=== PATIENT | female | born 1955 | race Caucasian/White ===

== ENCOUNTER 2022-01-06 08:13 | Inpatient (IN) | payer MEDICARE, OTHER ==
[~2022-01-06] VITALS: Ht 175.3 cm; Wt 118.1 kg
[2022-01-06 08:53] LABS: BASO % 1 % (0-3); EOS # 0.1 x10^3/uL (0.0-0.7); EOS % 3 % (0-3); HEMATOCRIT 32.7 % (36.0-47.0); LYMPH # 0.5 x10^3/uL (1.0-4.8); LYMPH % 12 % (24-48); MEAN CORPUSCULAR HEMOGLOBIN 32 pg (25-35); MEAN CORPUSCULAR HGB CONC 31 g/dL (31-37); MEAN CORPUSCULAR VOLUME 104 fL (79-100); MONO # 0.3 x10^3/uL (0.0-1.1); MONO % 6 % (0-9); NEUT # 3.5 x10^3/uL (1.8-7.7); NEUT % 78 % (31-73); PLATELET COUNT 114 x10^3/uL (140-400); RED BLOOD COUNT 3.13 x10^6/uL (3.50-5.40); RED CELL DISTRIBUTION WIDTH 18.4 % (11.5-14.5); WHITE BLOOD COUNT 4.4 x10^3/uL (4.0-11.0)
[2022-01-06 09:09] LABS: CREATININE 5.8 mg/dL (0.6-1.0); GFR 7.3; POTASSIUM 3.8 mmol/L (3.5-5.1)
[2022-01-06 09:16] LABS: ALBUMIN 3.1 g/dL (3.4-5.0); ALBUMIN/GLOBULIN RATIO 0.7 (1.0-1.7); TOTAL BILIRUBIN 0.4 mg/dL (0.2-1.0); TOTAL PROTEIN 7.8 g/dL (6.4-8.2)
--- NOTE | 2022-01-06 09:23 | RAD ---
EXAM: XR CHEST 1V 01/06/2022 8:31 AM CLINICAL INDICATION: Low blood pressure COMPARISON: Chest radiograph 08/06/2021 TECHNIQUE: AP upright view of the chest FINDINGS: There are surgical changes of median sternotomy. The heart is mildly enlarged. Unchanged b andlike opacities in the right perihilar region, which may be fluid along the fissure and or scarring or atelectasis.. Possible increased opacities in the medial right middle lobe versus prominent peric ardial fat pad. No pleural effusion or pneumothorax. IMPRESSION: 1. Unchanged cardiomegaly. 2. Unchanged linear opacities in the right perihilar region which may be combination of fluid along t he minor fissure and scarring or atelectasis. 3. Possibly increased opacities in the medial right middle lobe, which could be due to atelectasis or prominent pericardial fat pad. Electronically signed by: Khushbu Quiroga MD (01/06/2022 9:21 AM) [id number]
[2022-01-06] MEDS ORDERED: IOHEXOL 300 MG/ML 100ML VIAL. IV ONE (12:00)
[2022-01-06] MEDS ORDERED: CONTRAST GIVEN. MC PRN (12:00)
--- NOTE | 2022-01-06 13:06 | RAD ---
CT CHEST+ABD+PELVIS W History: Hypotension Comparison: CT abdomen and pelvis 12/01/2020 Technique: CT of the chest, abdomen and pelvis with intravenous contrast. Findings: Chest: Pulmonary arteries: No large or central pulmonary embolism. Aorta and great vessels: No aneurysm of the aortic arch or thoracic aorta is seen. Moderate atheroscl erotic calcification. Heart: Cardiomegaly. Heavy coronary artery calcification. No pericardial effusion. Postsurgical butt es from CABG. Thyroid: No significant abnormalities. Mediastinum and godfrey: No mediastinal masses or adenopathy is seen. Esophagus: The visualized esophagus is normal. Airways, Lungs, Pleura: Low lung volumes with multifocal atelectatic consolidation and groundglass op acities diffusely. No pleural effusion or pneumothorax. Soft tissue and osseous: Left axillary stent. Healed posterior right rib fractures. Abdomen/Pelvis: General abdomen: No ascites. No free air. Liver : Normal in size and attenuation. Unchanged peripherally calcified 3.0 cm mass adjacent to the right hepatic dome under the diaphragm. Gallbladder/Biliary Tree: Status post cholecystectomy. No intrahepatic or extrahepatic biliary ductal dilatation. Pancreas: Normal. Spleen: Normal in size and attenuation. 2.1 cm splenule inferior splenule near the right paracolic gu tter. Adrenal glands: Normal. Kidneys: Bilateral renal cortical atrophy with heavy calcification at the origin of the renal arterie s. No hydronephrosis or hydroureter. No renal masses identified. Gastrointestinal: Unremarkable stomach and small bowel. Surgical changes in the region of the cecal b ase likely appendectomy. No colonic wall thickening or pericolonic inflammatory changes. Lymph nodes: No lymphadenopathy. Vessels: Unremarkable. Pelvic Organs: Calcified uterus. No adnexal masses. The decompressed bladder is unremarkable. Soft tissues: Unremarkable. Bones: No acute or aggressive lesions. Mild degenerative disc height narrowing of the lower lumbar sp ine. Impression: 1. Hypoinflated lungs with multiple areas of platelike consolidation likely atelectasis and groundgl ass opacities. Superimposed infection or edema cannot be excluded. 2. Cardiomegaly status post CABG. 3. No acute findings in the abdomen and pelvis. 4. Chronic 3 cm calcification right hepatic may represent dystrophic calcification liver also previo usly suggested possible dropped gallstone. ------ Exposure: One or more of the following individualized dose reduction techniques were utilized for thi s examination: 1. Automated exposure control 2. Adjustment of the mA and/or kV according to patient size 3. Use of iterative reconstruction technique. Electronically signed by: Murtaza Khan MD (01/06/2022 1:03 PM) [facility]
--- NOTE | 2022-01-06 14:41 | RAD ---
CT HEAD/BRAIN WO History: Altered mental status. Comparison: CT head 08/06/2021. Technique: Noncontrast CT imaging was performed of the head. Findings: No intracranial hemorrhage. No mass effect. No hydrocephalus. No evidence of acute territorial infar ction. There is redemonstrated left parieto-occipital encephalomalacia. Imaged orbits are unremarkable. Imaged paranasal sinuses and mastoid air cells are clear. The scalp a nd calvarium are unremarkable. Impression: 1. No acute intracranial abnormality. 2. 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 ----- Exposure: One or more of the following individualized dose reduction techniques were utilized for thi s examination: 1. Automated exposure control 2. Adjustment of the mA and/or kV according to patient size 3. Use of iterative reconstruction technique. Electronically signed by: Murtaza Khan MD (01/06/2022 2:39 PM) [facility]
--- NOTE | 2022-01-06 15:15 | PHYS DOC ---
Past Medical History Additional Past Medical Histor: NATHAN, MORBID OBESITY, PVD, HYPERCALCEMIA, END STAGE RENAL FAILURE Past Surgical History: Coronary Bypass Surgery, Other Additional Past Surgical Histo: LEFT LOWER LEG AMPUTATION Smoking Status: Never Smoker Alcohol Use: None General Adult EDM: Chief Complaint: HYPOTENSION HPI: HPI: Patient is a 66 year old female who presents with low blood pressure at dialysis center. Patient was asymptomatic throughout this episode. Dialysis center when she arrived, blood pressure was noted to be 90s over 50s. Patient was transported by EMS to our emergency department. In the ambulance, blood pressure was higher than in dialysis center. Upon arrival, blood pressure was 110/80. Patient is not complaining about any symptoms, patient states that she feels fine. Patient is at longterm. Contacted longterm who states that patient is at baseline, was at baseline this morning, verified the patient is currently at baseline as well. Verified with nurse who knows patient that she was mentally at baseline. Review of Systems: Review of Systems: Constitutional: Denies fever or chills. [] Eyes: Denies change in visual acuity. [] HENT: Denies nasal congestion or sore throat. [] Respiratory: Denies cough or shortness of breath. [] Cardiovascular: Denies chest pain or edema. [] GI: Denies abdominal pain, nausea, vomiting, bloody stools or diarrhea. [] : Denies dysuria. [] Musculoskeletal: Denies back pain or joint pain. [] Integument: Denies rash. [] Neurologic: Denies headache, focal weakness or sensory changes. [] Endocrine: Denies polyuria or polydipsia. [] Lymphatic: Denies swollen glands. [] Psychiatric: Denies depression or anxiety. [] Heart Score: C/O Chest Pain: No Risk Factors: Risk Factors: DM, Current or recent (<one month) smoker, HTN, HLP, family history of CAD, obesity. Risk Scores: Score 0 - 3: 2.5% MACE over next 6 weeks - Discharge Home Score 4 - 6: 20.3% MACE over next 6 weeks - Admit for Clinical Observation Score 7 - 10: 72.7% MACE over next 6 weeks - Early Invasive Strategies Current Medications: Current Medications Medications (Trade) Dose Ordered Sig/Marcia Start Time Stop Time Status Last Admin Dose Admin Info (CONTRAST GIVEN -- Rx MONITORING) 1 each PRN DAILY PRN 01/06/22 12:00 01/08/22 11:59 Iohexol (Omnipaque 300 Mg/ml) 60 ml 1X ONCE 01/06/22 12:00 01/06/22 12:01 DC 01/06/22 12:14 60 ML Allergies: Allergies: Allergies Coded Allergies Type Severity Reaction Last Updated Verified acetaminophen Allergy Intermediate 01/06/22 Yes codeine Allergy Intermediate 01/06/22 Yes fentanyl Allergy Intermediate 01/06/22 Yes hydrocodone Allergy Intermediate 01/06/22 Yes morphine Allergy Intermediate 01/06/22 Yes oxycodone Allergy Intermediate 01/06/22 Yes Physical Exam: PE: Constitutional: Well developed, well nourished, no acute distress, non-toxic appearance. [] HENT: Normocephalic, atraumatic, bilateral external ears normal, oropharynx moist, no oral exudates, nose normal. [] Neck: Normal range of motion, no tenderness, supple, no stridor. [] Cardiovascular:Heart rate regular rhythm, no murmur [] Lungs & Thorax: Bilateral breath sounds clear to auscultation [] Abdomen: Bowel sounds normal, soft, no tenderness, no masses, no pulsatile masses. [] Skin: Warm, dry, no erythema, no rash. [] Back: No tenderness, no CVA tenderness. [] Extremities: No tenderness, no cyanosis, no clubbing, ROM intact, no edema. [] Neurologic: Alert and oriented X 3, normal motor function, normal sensory function, no focal deficits noted. [] Psychologic: Affect normal, judgement normal, mood normal. [] Current Patient Data: Labs: Laboratory Tests Test 01/06/22 08:40 01/06/22 08:43 White Blood Count 4.4 x10^3/uL (4.0-11.0) Red Blood Count 3.13 x10^6/uL (3.50-5.40) L Hemoglobin 10.0 g/dL (12.0-15.5) L Hematocrit 32.7 % (36.0-47.0) L Mean Corpuscular Volume 104 fL (79-100) H Mean Corpuscular Hemoglobin 32 pg (25-35) Mean Corpuscular Hemoglobin Concent 31 g/dL (31-37) Red Cell Distribution Width 18.4 % (11.5-14.5) H Platelet Count 114 x10^3/uL (140-400) L Neutrophils (%) (Auto) 78 % (31-73) H Lymphocytes (%) (Auto) 12 % (24-48) L Monocytes (%) (Auto) 6 % (0-9) Eosinophils (%) (Auto) 3 % (0-3) Basophils (%) (Auto) 1 % (0-3) Neutrophils # (Auto) 3.5 x10^3/uL (1.8-7.7) Lymphocytes # (Auto) 0.5 x10^3/uL (1.0-4.8) L Monocytes # (Auto) 0.3 x10^3/uL (0.0-1.1) Eosinophils # (Auto) 0.1 x10^3/uL (0.0-0.7) Basophils # (Auto) 0.0 x10^3/uL (0.0-0.2) Sodium Level 132 mmol/L (136-145) L Potassium Level 3.8 mmol/L (3.5-5.1) Chloride Level 94 mmol/L (98-107) L Carbon Dioxide Level 29 mmol/L (21-32) Anion Gap 9 (6-14) Blood Urea Nitrogen 47 mg/dL (7-20) H Creatinine 5.8 mg/dL (0.6-1.0) H Estimated GFR (Cockcroft-Gault) 7.3 BUN/Creatinine Ratio 8 (6-20) Glucose Level 236 mg/dL (70-99) H Lactic Acid Level 1.1 mmol/L (0.4-2.0) Calcium Level 9.0 mg/dL (8.5-10.1) Total Bilirubin 0.4 mg/dL (0.2-1.0) Aspartate Amino Transferase (AST) 13 U/L (15-37) L Alanine Aminotransferase (ALT) 22 U/L (14-59) Alkaline Phosphatase 214 U/L (46-116) H Ammonia 14 mcmol/L (11-34) Troponin I High Sensitivity 13 ng/L (4-50) Total Protein 7.8 g/dL (6.4-8.2) Albumin 3.1 g/dL (3.4-5.0) L Albumin/Globulin Ratio 0.7 (1.0-1.7) L Glucose (Fingerstick) 243 mg/dL (70-99) H Laboratory Tests 01/06/22 08:40 Laboratory Tests 01/06/22 08:40 Vital Signs: Vital Signs Date Time Temp Pulse Resp B/P (MAP) Pulse Ox O2 Delivery O2 Flow Rate FiO2 01/06/22 13:51 52 130/56 (80) 98 Room Air 01/06/22 12:38 92.4 92.4 01/06/22 11:34 18 EKG: EKG: Abnormal EKG, right bundle branch block bifascicular block [] Radiology/Procedures: Radiology/Procedures: PATIENT: EDNA MEHTA ACCOUNT: [id number] : 1955 LOCATION: ER AGE: 66 SEX: F EXAM STATUS: REG ER ORD. PHYSICIAN: OMKAR RIZVI MD REASON: AMS PROCEDURE: CT HEAD WO CONTRAST CT HEAD/BRAIN WO History: Altered mental status. Comparison: CT head 08/06/2021. Technique: Noncontrast CT imaging was performed of the head. Findings: No intracranial hemorrhage. No mass effect. No hydrocephalus. No evidence of acute territorial infarction. There is redemonstrated left parieto-occipital encephalomalacia. Imaged orbits are unremarkable. Imaged paranasal sinuses and mastoid air cells are clear. The scalp and calvarium are unremarkable. Impression: 1. No acute intracranial abnormality. 2. 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 ----- Exposure: One or more of the following individualized dose reduction techniques were utilized for this examination: 1. Automated exposure control 2. Adjustment of the mA and/or kV according to patient size 3. Use of iterative reconstruction technique. Electronically signed by: Murtaza Diaz MD (01/06/2022 2:39 PM) [facility] DICTATED and SIGNED BY: MURTAZA DIAZ MD DATE: 01/06/22 7087 PATIENT: EDNA MEHTA ACCOUNT: [id number] : 1955 LOCATION: ER AGE: 66 SEX: F EXAM STATUS: REG ER ORD. PHYSICIAN: OMKAR RIZVI MD REASON: hypotension PROCEDURE: CT CHEST ABD PELVIS W/CONTRAST CT CHEST+ABD+PELVIS W History: Hypotension Comparison: CT abdomen and pelvis 12/01/2020 Technique: CT of the chest, abdomen and pelvis with intravenous contrast. Findings: Chest: Pulmonary arteries: No large or central pulmonary embolism. Aorta and great vessels: No aneurysm of the aortic arch or thoracic aorta is seen. Moderate atherosclerotic calcification. Heart: Cardiomegaly. Heavy coronary artery calcification. No pericardial effusion. Postsurgical changes from CABG. Thyroid: No significant abnormalities. Mediastinum and godfrey: No mediastinal masses or adenopathy is seen. Esophagus: The visualized esophagus is normal. Airways, Lungs, Pleura: Low lung volumes with multifocal atelectatic consolidation and groundglass opacities diffusely. No pleural effusion or pneumothorax. Soft tissue and osseous: Left axillary stent. Healed posterior right rib fractures. Abdomen/Pelvis: General abdomen: No ascites. No free air. Liver : Normal in size and attenuation. Unchanged peripherally calcified 3.0 cm mass adjacent to the right hepatic dome under the diaphragm. Gallbladder/Biliary Tree: Status post cholecystectomy. No intrahepatic or extrahepatic biliary ductal dilatation. Pancreas: Normal. Spleen: Normal in size and attenuation. 2.1 cm splenule inferior splenule near the right paracolic gutter. Adrenal glands: Normal. Kidneys: Bilateral renal cortical atrophy with heavy calcification at the origin of the renal arteries. No hydronephrosis or hydroureter. No renal masses identified. Gastrointestinal: Unremarkable stomach and small bowel. Surgical changes in the region of the cecal base likely appendectomy. No colonic wall thickening or pericolonic inflammatory changes. Lymph nodes: No lymphadenopathy. Vessels: Unremarkable. Pelvic Organs: Calcified uterus. No adnexal masses. The decompressed bladder is unremarkable. Soft tissues: Unremarkable. Bones: No acute or aggressive lesions. Mild degenerative disc height narrowing of the lower lumbar spine. Impression: 1. Hypoinflated lungs with multiple areas of platelike consolidation likely atelectasis and groundglass opacities. Superimposed infection or edema cannot be excluded. 2. Cardiomegaly status post CABG. 3. No acute findings in the abdomen and pelvis. 4. Chronic 3 cm calcification right hepatic may represent dystrophic calcifica tion liver also previously suggested possible dropped gallstone. ------ Exposure: One or more of the following individualized dose reduction techniques were utilized for this examination: 1. Automated exposure control 2. Adjustment of the mA and/or kV according to patient size 3. Use of iterative reconstruction technique. Electronically signed by: Murtaza Diaz MD (01/06/2022 1:03 PM) [facility] DICTATED and SIGNED BY: MURTAZA DIAZ MD DATE: 01/06/22 1248 Impression: 66-year-old female with hypothermia, hypotension earlier today Course & Med Decision Making: Course & Med Decision Making Pertinent Labs and Imaging studies reviewed. (See chart for details) Patient was seen and evaluated, patient mentally at baseline. Her partner stated that he thought she was altered for the last month, longterm staff denies this. Patient is at baseline according to longterm staff. Does not seem like partner is completely aware of patient's mental capacity. Head CT, labs, chest abdomen pelvis CT was also obtained. Patient was noted to be hypothermic. No inflammatory markers. Patient is a dialysis patient, labs are normal for her condition. Since patient was hypothermic with reportedly low blood pressure earlier today, patient was admitted to hospitalist service, under Dr Sidhu, for further monitoring/intervention. Patient will also need dialysis. Maulik Disclaimer: Maulik Disclaimer: This electronic medical record was generated, in whole or in part, using a voice recognition dictation system. Departure Departure Impression: Primary Impression: Dehydration Additional Impression: Dialysis patient Disposition: 03 ALF FACILITY Condition: GOOD Patient Instructions: Dialysis, Care After Additional Instructions: Follow up with your Dialysis center, you should receive dialysis tomorrow. OMKAR RIZVI MD Jan 06, 2022 15:15
--- NOTE | 2022-01-06 15:44 | EKG ---
[facility] [address] [place] [address] Test Date: 2022-01-06 Test Time: 08:24:47 Pat Name: EDNA MEHTA Department: Room: 422 Gender: F Child Care Team Lead: : 1955 Requested By: OMKAR Bolton Number: [id number] Reading MD: Jose Phillip Measurements Intervals [place] Rate: 52 P: NE: QRS: -45 QRSD: 144 T: 150 QT: 496 QTc: 464 Interpretive Statements PROBABLE SINUS BRADYCARDIA ABNORMAL LEFT AXIS DEVIATION LEFT ANTERIOR FASCICULAR BLOCK Electronically Signed On 01-08-2022 18:20:50 CDT by Jose Phillip
--- NOTE | 2022-01-06 17:30 | NUR ---
Patient arrived to unit via bed from ER. Patient reported to have had episode of low blood pressure at dialysis today and was transported by [facility] to ED. Patient states the blood pressure readings obtained at visit are typical for her and retirement staff from [facility] stated patient was at baseline mentally which is slightly drowsy but rousable most of the time. Blood pressure obtained by nurse upon arrival to this unit was 105/45 pulse of [address] Sidhu for further orders.
[2022-01-06 17:54] VITALS: BP 105/45
[2022-01-06] MEDS ORDERED: ONDANSETRON PF 4 MG/2 ML VIAL. IVP PRN (18:15)
[2022-01-06] MEDS ORDERED: DEXTROSE 50% 25 GM / 50ML DISP.SYRIN. IV PRN (18:15)
[2022-01-06] MEDS ORDERED: IV DEXTROSE 5% 250 ML BAG. IV PRN (18:15)
[2022-01-06] MEDS ORDERED: ELECTROLYTE (NON-ICU) PROTOCOL. MC PRN (18:15)
[2022-01-06] MEDS ORDERED: ACETAMINOPHEN 325 MG TABLET. PO PRN (18:15)
[2022-01-06] MEDS ORDERED: CALCIUM CARBONATE 500 MG TAB.CHEW PO PRN (18:15)
[2022-01-06] MEDS ORDERED: HYDROmorphone 2 MG/ML INJ. IV PRN ×2 (18:15)
[2022-01-06 19:00] VITALS: BP 97/43
[2022-01-06] MEDS: SENNOSIDES/DOCUSATE 8.6/50MG TABLET. PO SCH (20:21)
[2022-01-06] MEDS: DOXYCYCLINE HYCLATE 100 MG TABLET PO SCH (20:21)
--- NOTE | 2022-01-06 20:22 | PDOC1 ---
History and Physical Date of Service: DOS: DATE: 01/06/22 TIME: 20:12 Chief Complaint: Chief Complain: missed dialysis, hypotension History of Present Illness: HPI: Patient is a 66-year-old female presented to the emergency room today from her dialysis center due to hypotension. Patient is ESRD on Thursday dialysis sound upon arrival to her center their blood pressure was 70s over 50s. She was given a 500 cc bolus and this improved to 90s over 50s. She was then taken to the emergency room here. Of note patient alert oriented x3 and asymptomatic throughout this entire episode. On arrival here patient's blood pressure improved to 110 systolic. She was noted to be hypothermic around 93 Fahrenheit. Otherwise work-up pretty unremarkable. Recommended for admission for observation dialysis and monitoring core temperature Past Medical/Surgical History: PMH/PSH: Additional Past Medical Histor: NATHAN, MORBID OBESITY, PVD, HYPERCALCEMIA, END STAGE RENAL FAILURE Past Surgical History: Coronary Bypass Surgery Additional Past Surgical Histo: LEFT LOWER LEG AMPUTATION Smoking Status: Never Smoker Alcohol Use: None Denies drug use Allergies: Allergies: Coded Allergies: acetaminophen (Verified Allergy, Intermediate, 01/06/22) PT DOES HAVE TYLENOL ACTIVE PRNAT SNF codeine (Verified Allergy, Intermediate, 01/06/22) fentanyl (Verified Allergy, Intermediate, 01/06/22) hydrocodone (Verified Allergy, Intermediate, 01/06/22) morphine (Verified Allergy, Intermediate, 01/06/22) oxycodone (Verified Allergy, Intermediate, 01/06/22) Family History: Family History: Hypertension Current Medications: Current Medications Current Medications Iohexol (Omnipaque 300 Mg/ml) 60 ml 1X ONCE IV Last administered on 01/06/22at 12:14; Start 01/06/22 at 12:00; Stop 01/06/22 at 12:01; Status DC Info (CONTRAST GIVEN -- Rx MONITORING) 1 each PRN DAILY PRN MC SEE COMMENTS; Start 01/06/22 at 12:00; Stop 01/08/22 at 11:59 Ondansetron HCl (Zofran) 4 mg PRN Q6HRS PRN IVP NAUSEA/VOMITING; Start 01/06/22 at 18:15 Calcium Carbonate/ Glycine (Tums) 500 mg PRN Q3HRS PRN PO UPSET STOMACH; Start 01/06/22 at 18:15 Info (Non-Icu Electrolyte Protocol) 1 ea PRN DAILY PRN MC SEE COMMENTS; Start 01/06/22 at 18:15 Hydromorphone HCl (Dilaudid) 0.2 mg PRN Q1HR PRN IV PAIN-SEE COMMENTS; Start 01/06/22 at 18:15 Hydromorphone HCl (Dilaudid) 0.4 mg PRN Q1HR PRN IV PAIN-SEE COMMENTS; Start 01/06/22 at 18:15 Acetaminophen (Tylenol) 650 mg PRN Q6HRS PRN PO Headaches, Temp > 101.5F; Start 01/06/22 at 18:15 Senna/Docusate Sodium (Senna Plus) 1 tab BID PO ; Start 01/06/22 at 21:00 Heparin Sodium (Porcine) (Heparin Sodium) 5,000 unit Q8HRS SQ ; Start 01/06/22 at 19:00 Insulin Human Lispro (HumaLOG) 0-7 UNITS TIDWMEALS SQ ; Start 01/07/22 at 08:00 Dextrose (Dextrose 50%-Water Syringe) 12.5 gm PRN Q15MIN PRN IV SEE COMMENTS; Start 01/06/22 at 18:15 Dextrose (Iv Dextrose 5%) 250 ml PRN Q15MIN PRN IV SEE COMMENTS; Start 01/06/22 at 18:15 Ceftriaxone Sodium (Rocephin) 1 gm Q24H IVP ; Start 01/06/22 at 19:00 Doxycycline Hyclate (Vibra-Tab) 100 mg BID PO ; Start 01/06/22 at 19:00 Vitamin B Complex/ Vitamin C (Nataly-Harris) 1 tab DAILY PO ; Start 01/07/22 at 09:00; Status UNV ROS: Review of Systems Review of System Unless noted in HPI 14 point review of systems was negative Physical Exam: Vital Signs: Vital Signs Date Time Temp Pulse Resp B/P (MAP) Pulse Ox O2 Delivery O2 Flow Rate FiO2 01/06/22 19:00 97.6 88 22 97/43 (61) 93 Room Air 97.6 Physcial Exam: GEN: Lethargic obese HEENT: Normal cephalic, atraumatic, external auditory canals are patent EYES: Extraocular muscles are intact, pupil are equally round and reactive to light and accommodation MUSCULOSKELETAL: Well developed , well nourished, good range of motion ENDOCRINE: No thyromegaly was palpated LYMPHATICS: No cervical chain or axillary nodes were noted HEMATOPOIETIC: No bruising NECK: Supple, no JVD, no thyromegaly was noted LUNGS: Decreased air entry throughout HEART: RRR, S1, S2 present. Peripheral pulses intact, no obvious murmurs noted ABDOMEN: Soft, nontender. Positive bowel sounds, no organomegaly, normal kierra l sounds EXTREMITIES: Left amputation. Right-sided pitting edema NEUROLOGIC: Normal speech and tone. A&O x 3, moves all extremities, no obvious focal deficits PSYCHIATRIC: Normal affect, normal mood. Stable SKIN: No ulcerations or rashes, good skin turgor, no jaundice VASCULAR: Good capillary refill, neurovascular bundle appears to be intact Labs: Labs: Laboratory Tests Test 01/06/22 08:40 01/06/22 08:43 01/06/22 17:32 White Blood Count 4.4 x10^3/uL (4.0-11.0) Red Blood Count 3.13 x10^6/uL (3.50-5.40) Hemoglobin 10.0 g/dL (12.0-15.5) Hematocrit 32.7 % (36.0-47.0) Mean Corpuscular Volume 104 fL (79-100) Mean Corpuscular Hemoglobin 32 pg (25-35) Mean Corpuscular Hemoglobin Concent 31 g/dL (31-37) Red Cell Distribution Width 18.4 % (11.5-14.5) Platelet Count 114 x10^3/uL (140-400) Neutrophils (%) (Auto) 78 % (31-73) Lymphocytes (%) (Auto) 12 % (24-48) Monocytes (%) (Auto) 6 % (0-9) Eosinophils (%) (Auto) 3 % (0-3) Basophils (%) (Auto) 1 % (0-3) Neutrophils # (Auto) 3.5 x10^3/uL (1.8-7.7) Lymphocytes # (Auto) 0.5 x10^3/uL (1.0-4.8) Monocytes # (Auto) 0.3 x10^3/uL (0.0-1.1) Eosinophils # (Auto) 0.1 x10^3/uL (0.0-0.7) Basophils # (Auto) 0.0 x10^3/uL (0.0-0.2) Sodium Level 132 mmol/L (136-145) Potassium Level 3.8 mmol/L (3.5-5.1) Chloride Level 94 mmol/L (98-107) Carbon Dioxide Level 29 mmol/L (21-32) Anion Gap 9 (6-14) Blood Urea Nitrogen 47 mg/dL (7-20) Creatinine 5.8 mg/dL (0.6-1.0) Estimated GFR (Cockcroft-Gault) 7.3 BUN/Creatinine Ratio 8 (6-20) Glucose Level 236 mg/dL (70-99) Lactic Acid Level 1.1 mmol/L (0.4-2.0) Calcium Level 9.0 mg/dL (8.5-10.1) Total Bilirubin 0.4 mg/dL (0.2-1.0) Aspartate Amino Transf (AST/SGOT) 13 U/L (15-37) Alanine Aminotransferase (ALT/SGPT) 22 U/L (14-59) Alkaline Phosphatase 214 U/L (46-116) Ammonia 14 mcmol/L (11-34) Troponin I High Sensitivity 13 ng/L (4-50) Total Protein 7.8 g/dL (6.4-8.2) Albumin 3.1 g/dL (3.4-5.0) Albumin/Globulin Ratio 0.7 (1.0-1.7) Vitamin B12 Level 1425 pg/mL (247-911) Thyroid Stimulating Hormone (TSH) 2.319 uIU/mL (0.358-3.74) Glucose (Fingerstick) 243 mg/dL (70-99) 199 mg/dL (70-99) Laboratory Tests Test 01/06/22 08:40 01/06/22 08:43 01/06/22 17:32 White Blood Count 4.4 x10^3/uL (4.0-11.0) Red Blood Count 3.13 x10^6/uL (3.50-5.40) Hemoglobin 10.0 g/dL (12.0-15.5) Hematocrit 32.7 % (36.0-47.0) Mean Corpuscular Volume 104 fL (79-100) Mean Corpuscular Hemoglobin 32 pg (25-35) Mean Corpuscular Hemoglobin Concent 31 g/dL (31-37) Red Cell Distribution Width 18.4 % (11.5-14.5) Platelet Count 114 x10^3/uL (140-400) Neutrophils (%) (Auto) 78 % (31-73) Lymphocytes (%) (Auto) 12 % (24-48) Monocytes (%) (Auto) 6 % (0-9) Eosinophils (%) (Auto) 3 % (0-3) Basophils (%) (Auto) 1 % (0-3) Neutrophils # (Auto) 3.5 x10^3/uL (1.8-7.7) Lymphocytes # (Auto) 0.5 x10^3/uL (1.0-4.8) Monocytes # (Auto) 0.3 x10^3/uL (0.0-1.1) Eosinophils # (Auto) 0.1 x10^3/uL (0.0-0.7) Basophils # (Auto) 0.0 x10^3/uL (0.0-0.2) Sodium Level 132 mmol/L (136-145) Potassium Level 3.8 mmol/L (3.5-5.1) Chloride Level 94 mmol/L (98-107) Carbon Dioxide Level 29 mmol/L (21-32) Anion Gap 9 (6-14) Blood Urea Nitrogen 47 mg/dL (7-20) Creatinine 5.8 mg/dL (0.6-1.0) Estimated GFR (Cockcroft-Gault) 7.3 BUN/Creatinine Ratio 8 (6-20) Glucose Level 236 mg/dL (70-99) Lactic Acid Level 1.1 mmol/L (0.4-2.0) Calcium Level 9.0 mg/dL (8.5-10.1) Total Bilirubin 0.4 mg/dL (0.2-1.0) Aspartate Amino Transf (AST/SGOT) 13 U/L (15-37) Alanine Aminotransferase (ALT/SGPT) 22 U/L (14-59) Alkaline Phosphatase 214 U/L (46-116) Ammonia 14 mcmol/L (11-34) Troponin I High Sensitivity 13 ng/L (4-50) Total Protein 7.8 g/dL (6.4-8.2) Albumin 3.1 g/dL (3.4-5.0) Albumin/Globulin Ratio 0.7 (1.0-1.7) Vitamin B12 Level 1425 pg/mL (247-911) Thyroid Stimulating Hormone (TSH) 2.319 uIU/mL (0.358-3.74) Glucose (Fingerstick) 243 mg/dL (70-99) 199 mg/dL (70-99) Assessment/Plan Assessment/Plan Hypotension, altered mental status, hypothermia ,ESRD on Thursday dialysis, macrocytic anemia morbid obesity history NATHAN -Nephrology consult to resume dialysis. Blood pressures improved -Tammi hugger for hypothermia -Questionable opacity on imaging. Will at least start basic antibiotics Rocephin doxy. Check UA if infected this combo should also cover -Home meds as indicated -We will start Nataly-Harris given macrocytic anemia -Check A1c TSH given altered mental status -Discussed with bedside RN Justifications for Admission Other Justification RADHA JACKSON MD Jan 06, 2022 20:22
[2022-01-06] MEDS: cefTRIAXone IV Push 1 GM VIAL. IVP SCH (20:23)
[2022-01-06] MEDS: HEPARIN for SUB-Q USE 5,000 UNIT/ML VIAL. SQ SCH (20:31)
--- NOTE | 2022-01-06 21:53 | NUR ---
Call to Dr. Sidhu regarding clarification of admit orders. Informed him of current vitals, FSBS. Orders received to hold Tammi hugger for now and call if condition changes. Keep on medical surgical floor, try and get Bipap settings and have respiratory place on Bipap if needed.
[2022-01-06 23:00] VITALS: BP 127/45
--- NOTE | 2022-01-06 23:17 | NUR ---
Call placed to Patient's facility to verify Bi pap settings. Nurse stated that Patient does not use Bi pap but uses oxygen PRN. Call placed to Dr. Sidhu's service to inform him of no Bi pap.
--- NOTE | 2022-01-06 23:44 | NUR ---
Dr. Sidhu returned call and aware of no Bi pap at HS per facility and Oxygen PRN. Order received to use oxygen PRN at HS.
[2022-01-07 02:51] VITALS: BP 136/55
[2022-01-07] MEDS: HEPARIN for SUB-Q USE 5,000 UNIT/ML VIAL. SQ SCH ×3 (05:50→21:18)
[2022-01-07 07:00] VITALS: BP 130/57
--- NOTE | 2022-01-07 09:32 | PDOC2 ---
CONSULT Date of Consult Date of Consult DATE: 01/07/22 TIME: : Reason for Consult Reason for Consult: ESRD Source Source: Chart review, Patient History of Present Illness Reason for Visit: Patient is a 66-year-old CF presented to the emergency room on 01/06 from her dialysis center due to hypotension. At the dialysis center her blood pressure was 70s over 50s. She was given a 500 cc bolus and this improved to 90s over 50s. She was sent to the ER . On arrival patient's blood pressure improved to 110 systolic. She was noted to be hypothermic around 93 Fahrenheit. No N/V . No F/C . Denies any CP or abd ominal pain . C/O mild SOB . Uses O2 at home prn She did not get dialysis yesterday, last was on Thursday Current Problem List Problem List Problems Medical Problems: (1) Dehydration Status: Acute (2) Dialysis patient Status: Acute (3) Hypothermia Status: Acute Current Medications Current Medications Current Medications Iohexol (Omnipaque 300 Mg/ml) 60 ml 1X ONCE IV Last administered on 01/06/22at 12:14; Start 01/06/22 at 12:00; Stop 01/06/22 at 12:01; Status DC Info (CONTRAST GIVEN -- Rx MONITORING) 1 each PRN DAILY PRN MC SEE COMMENTS; Start 01/06/22 at 12:00; Stop 01/08/22 at 11:59 Ondansetron HCl (Zofran) 4 mg PRN Q6HRS PRN IVP NAUSEA/VOMITING; Start 01/06/22 at 18:15 Calcium Carbonate/ Glycine (Tums) 500 mg PRN Q3HRS PRN PO UPSET STOMACH; Start 01/06/22 at 18:15 Info (Non-Icu Electrolyte Protocol) 1 ea PRN DAILY PRN MC SEE COMMENTS; Start 01/06/22 at 18:15 Hydromorphone HCl (Dilaudid) 0.2 mg PRN Q1HR PRN IV PAIN-SEE COMMENTS; Start 01/06/22 at 18:15 Hydromorphone HCl (Dilaudid) 0.4 mg PRN Q1HR PRN IV PAIN-SEE COMMENTS; Start 01/06/22 at 18:15 Acetaminophen (Tylenol) 650 mg PRN Q6HRS PRN PO Headaches, Temp > 101.5F; Start 01/06/22 at 18:15 Senna/Docusate Sodium (Senna Plus) 1 tab BID PO Last administered on 01/06/22at 20:21; Start 01/06/22 at 21:00 Heparin Sodium (Porcine) (Heparin Sodium) 5,000 unit Q8HRS SQ Last administered on 01/07/22at 05:50; Start 01/06/22 at 19:00 Insulin Human Lispro (HumaLOG) 0-7 UNITS TIDWMEALS SQ ; Start 01/07/22 at 08:00 Dextrose (Dextrose 50%-Water Syringe) 12.5 gm PRN Q15MIN PRN IV SEE COMMENTS; Start 01/06/22 at 18:15 Dextrose (Iv Dextrose 5%) 250 ml PRN Q15MIN PRN IV SEE COMMENTS; Start 01/06/22 at 18:15 Ceftriaxone Sodium (Rocephin) 1 gm Q24H IVP Last administered on 01/06/22at 20:23; Start 01/06/22 at 19:00 Doxycycline Hyclate (Vibra-Tab) 100 mg BID PO Last administered on 01/06/22at 20:21; Start 01/06/22 at 19:00 Vitamin B Complex/ Vitamin C (Nataly-Harris) 1 tab DAILY PO ; Start 01/07/22 at 09:00 Allergies Allergies: Coded Allergies: acetaminophen (Verified Allergy, Intermediate, 01/06/22) PT DOES HAVE TYLENOL ACTIVE PRNAT SNF codeine (Verified Allergy, Intermediate, 01/06/22) fentanyl (Verified Allergy, Intermediate, 01/06/22) hydrocodone (Verified Allergy, Intermediate, 01/06/22) morphine (Verified Allergy, Intermediate, 01/06/22) oxycodone (Verified Allergy, Intermediate, 01/06/22) ROS Review of System As per HPI, rest of the ROS is negative Physical Exam Physical Exam GEN: obese HEENT: Normal cephalic, atraumatic, NECK: Supple, LUNGS: Decreased at bases , Non labored HEART: RRR, S1, S2 present. ABDOMEN: Soft, nontender. Positive bowel sounds, EXTREMITIES: Left BKA Right-sided pitting edema NEUROLOGIC: A&O x 3, moves all extremities, no obvious focal deficits PSYCHIATRIC: Normal affect,. Stable SKIN: No ulcerations or rashes, No SP or CVA tenderness Vital Signs Vital Signs Date Time Temp Pulse Resp B/P (MAP) Pulse Ox O2 Delivery O2 Flow Rate FiO2 01/07/22 07:00 97.3 66 18 130/57 (81) 100 Nasal Cannula 2.0 97.3 Assessment & Plan ESRD - On HD MWF ,last dialysis on thursday, was not dialyzed yesterday due to Low BP . Dialysis today, discussed treatment plan with DRN Hypotension POA- resolved. BP normal Altered mental status Hypothermia Anemia Morbid obesity Questionable opacity on imaging- On Abx Labs Labs Laboratory Tests Test 01/06/22 08:40 01/06/22 08:43 01/06/22 17:32 01/06/22 20:26 White Blood Count 4.4 x10^3/uL (4.0-11.0) Red Blood Count 3.13 x10^6/uL (3.50-5.40) Hemoglobin 10.0 g/dL (12.0-15.5) Hematocrit 32.7 % (36.0-47.0) Mean Corpuscular Volume 104 fL (79-100) Mean Corpuscular Hemoglobin 32 pg (25-35) Mean Corpuscular Hemoglobin Concent 31 g/dL (31-37) Red Cell Distribution Width 18.4 % (11.5-14.5) Platelet Count 114 x10^3/uL (140-400) Neutrophils (%) (Auto) 78 % (31-73) Lymphocytes (%) (Auto) 12 % (24-48) Monocytes (%) (Auto) 6 % (0-9) Eosinophils (%) (Auto) 3 % (0-3) Basophils (%) (Auto) 1 % (0-3) Neutrophils # (Auto) 3.5 x10^3/uL (1.8-7.7) Lymphocytes # (Auto) 0.5 x10^3/uL (1.0-4.8) Monocytes # (Auto) 0.3 x10^3/uL (0.0-1.1) Eosinophils # (Auto) 0.1 x10^3/uL (0.0-0.7) Basophils # (Auto) 0.0 x10^3/uL (0.0-0.2) Sodium Level 132 mmol/L (136-145) Potassium Level 3.8 mmol/L (3.5-5.1) Chloride Level 94 mmol/L (98-107) Carbon Dioxide Level 29 mmol/L (21-32) Anion Gap 9 (6-14) Blood Urea Nitrogen 47 mg/dL (7-20) Creatinine 5.8 mg/dL (0.6-1.0) Estimated GFR (Cockcroft-Gault) 7.3 BUN/Creatinine Ratio 8 (6-20) Glucose Level 236 mg/dL (70-99) Lactic Acid Level 1.1 mmol/L (0.4-2.0) Calcium Level 9.0 mg/dL (8.5-10.1) Total Bilirubin 0.4 mg/dL (0.2-1.0) Aspartate Amino Transf (AST/SGOT) 13 U/L (15-37) Alanine Aminotransferase (ALT/SGPT) 22 U/L (14-59) Alkaline Phosphatase 214 U/L (46-116) Ammonia 14 mcmol/L (11-34) Troponin I High Sensitivity 13 ng/L (4-50) Total Protein 7.8 g/dL (6.4-8.2) Albumin 3.1 g/dL (3.4-5.0) Albumin/Globulin Ratio 0.7 (1.0-1.7) Vitamin B12 Level 1425 pg/mL (247-911) Thyroid Stimulating Hormone (TSH) 2.319 uIU/mL (0.358-3.74) Glucose (Fingerstick) 243 mg/dL (70-99) 199 mg/dL (70-99) 179 mg/dL (70-99) Test 01/07/22 07:53 Glucose (Fingerstick) 136 mg/dL (70-99) Laboratory Tests Test 01/06/22 17:32 01/06/22 20:26 01/07/22 07:53 Glucose (Fingerstick) 199 mg/dL (70-99) 179 mg/dL (70-99) 136 mg/dL (70-99) Review All relevant outside records, renal labs, imaging studies, telemetry/EKG's were reviewed. Images Images Comparison: CT abdomen and pelvis 12/01/2020 Technique: CT of the chest, abdomen and pelvis with intravenous contrast. Findings: Chest: Pulmonary arteries: No large or central pulmonary embolism. Aorta and great vessels: No aneurysm of the aortic arch or thoracic aorta is seen. Moderate atherosclerotic calcification. Heart: Cardiomegaly. Heavy coronary artery calcification. No pericardial effus ion. Postsurgical changes from CABG. Thyroid: No significant abnormalities. Mediastinum and godfrey: No mediastinal masses or adenopathy is seen. Esophagus: The visualized esophagus is normal. Airways, Lungs, Pleura: Low lung volumes with multifocal atelectatic consolidation and groundglass opacities diffusely. No pleural effusion or pneumothorax. Soft tissue and osseous: Left axillary stent. Healed posterior right rib fractures. Abdomen/Pelvis: General abdomen: No ascites. No free air. Liver : Normal in size and attenuation. Unchanged peripherally calcified 3.0 cm mass adjacent to the right hepatic dome under the diaphragm. Gallbladder/Biliary Tree: Status post cholecystectomy. No intrahepatic or extrahepatic biliary ductal dilatation. Pancreas: Normal. Spleen: Normal in size and attenuation. 2.1 cm splenule inferior splenule near the right paracolic gutter. Adrenal glands: Normal. Kidneys: Bilateral renal cortical atrophy with heavy calcification at the origin of the renal arteries. No hydronephrosis or hydroureter. No renal masses identified. Gastrointestinal: Unremarkable stomach and small bowel. Surgical changes in the region of the cecal base likely appendectomy. No colonic wall thickening or pericolonic inflammatory changes. Lymph nodes: No lymphadenopathy. Vessels: Unremarkable. Pelvic Organs: Calcified uterus. No adnexal masses. The decompressed bladder is unremarkable. Soft tissues: Unremarkable. Bones: No acute or aggressive lesions. Mild degenerative disc height narrowing of the lower lumbar spine. Impression: 1. Hypoinflated lungs with multiple areas of platelike consolidation likely atelectasis and groundglass opacities. Superimposed infection or edema cannot be excluded. 2. Cardiomegaly status post CABG. 3. No acute findings in the abdomen and pelvis. 4. Chronic 3 cm calcification right hepatic may represent dystrophic calcification liver also previously suggested possible dropped gallstone. YOJANA RIDER MD Jan 07, 2022 09:32
[2022-01-07] MEDS: SENNOSIDES/DOCUSATE 8.6/50MG TABLET. PO SCH ×2 (10:14→21:12)
[2022-01-07] MEDS: FOLIC/VIT B COMP W-C (RENAL) TABLET. PO SCH (10:14)
[2022-01-07] MEDS: DOXYCYCLINE HYCLATE 100 MG TABLET PO SCH ×2 (10:14→21:12)
[2022-01-07] MEDS: INSULIN LISPRO 300 UNITS/3 ML VIAL. SQ SCH ×3 (10:20→17:00)
--- NOTE | 2022-01-07 10:55 | PDOC ---
[facility] [facility] PROGRESS NOTE Date of Service DOS: DATE: 01/07/22 TIME: 10:54 Chief Complaint Chief Complaint Hypotension ESRD on dialysis Metabolic cephalopathy Hypothermia macrocytic anemia morbid obesity history NATHAN History of Present Illness History of Present Illness 01/07/2022 Patient seen and examined She is pleasantly confused really will not wake up much Her is present (he explains she developed mental status change after having 2 days of dialysis in a row because she was volume overloaded) Discussed with RN Discussed with case management Chart reviewed Vitals/I&O Vitals/I&O: Vital Signs Date Time Temp Pulse Resp B/P (MAP) Pulse Ox O2 Delivery O2 Flow Rate FiO2 01/07/22 07:00 97.3 66 18 130/57 (81) 100 Nasal Cannula 2.0 97.3 I & O 01/06/22 01/06/22 01/07/22 15:00 23:00 07:00 Intake Total 0 ml 0 ml Balance 0 ml 0 ml Physical Exam General: No acute distress, Other (Very sleepy and weak obese) Heart: Regular rate Lungs: Clear Abdomen: Normal bowel sounds Extremities: No clubbing Skin: No rashes Labs Labs: Laboratory Tests Test 01/06/22 17:32 01/06/22 20:26 01/07/22 07:53 01/07/22 10:01 Glucose (Fingerstick) 199 mg/dL (70-99) 179 mg/dL (70-99) 136 mg/dL (70-99) 183 mg/dL (70-99) Assessment and Plan Assessmemt and Plan Problems Medical Problems: (1) Dehydration Status: Acute (2) Dialysis patient Status: Acute (3) Hypothermia Status: Acute Hypotension ESRD on dialysis Metabolic cephalopathy Hypothermia macrocytic anemia morbid obesity history NATHAN Plan Dialysis per nephrology Cardiac monitoring Empiric IV Rocephin Trend labs Home meds DVT prophylaxis Full code Comment Review of Relevant I have reviewed the following items joseph (where applicable) has been applied. Medications: Current Medications Medications (Trade) Dose Ordered Sig/Marcia Route PRN Reason Start Time Stop Time Status Last Admin Dose Admin Iohexol (Omnipaque 300 Mg/ml) 60 ml 1X ONCE IV 01/06/22 12:00 01/06/22 12:01 DC 01/06/22 12:14 Senna/Docusate Sodium (Senna Plus) 1 tab BID PO 01/06/22 21:00 01/07/22 10:14 Heparin Sodium (Porcine) (Heparin Sodium) 5,000 unit Q8HRS SQ 01/06/22 19:00 01/07/22 05:50 Insulin Human Lispro (HumaLOG) 0-7 UNITS TIDWMEALS SQ 01/07/22 08:00 01/07/22 10:20 Ceftriaxone Sodium (Rocephin) 1 gm Q24H IVP 01/06/22 19:00 01/06/22 20:23 Doxycycline Hyclate (Vibra-Tab) 100 mg BID PO 01/06/22 19:00 01/07/22 10:14 Vitamin B Complex/ Vitamin C (Nataly-Harris) 1 tab DAILY PO 01/07/22 09:00 01/07/22 10:14 Justifications for Admission Other Justification JAIME WEBBER III DO Jan 07, 2022 10:55
[2022-01-07 11:00] VITALS: BP 122/54
--- NOTE | 2022-01-07 13:10 | NUR ---
HOLDING INSULIN, PT ASLEEP AND NOT EATING LUNCH. WILL REASSESS SUGAR.
[2022-01-07] MEDS ORDERED: DIALYSIS PATIENT. MC PRN ×2 (13:15)
[2022-01-07] MEDS ORDERED: IV NORMAL SALINE 1000ML BAG 1,000 ML IV PRN ×2 (13:15)
[2022-01-07] MEDS ORDERED: LIDOCAINE 1% PF 2 ML VIAL. INJ PRN (13:15)
--- NOTE | 2022-01-07 13:58 | NUR ---
Rehab screen completed. Would recommend PT/OT eval and treat. Please initiate if you agree. Addendum: 01/07/22 at 1400 by SELENE TUCKER PT Amended: Links added.
[2022-01-07] MEDS: cefTRIAXone IV Push 1 GM VIAL. IVP SCH (18:39)
[2022-01-07 19:45] VITALS: BP 125/47
[2022-01-07] MEDS: LACTOBACILLUS RHAMNOSUS GG 1 CAPSULE. PO SCH (21:12)
[2022-01-07 23:43] VITALS: BP 106/52
[2022-01-08 02:17] LABS: HEMOGLOBIN A1C 6.4 % (4.8-5.6)
[2022-01-08 03:29] VITALS: BP 126/63
[2022-01-08 06:01] LABS: CALCIUM 9.1 mg/dL (8.5-10.1); CREATININE 8.1 mg/dL (0.6-1.0); POTASSIUM 4.4 mmol/L (3.5-5.1)
[2022-01-08] MEDS: HEPARIN for SUB-Q USE 5,000 UNIT/ML VIAL. SQ SCH ×3 (06:09→21:33)
[2022-01-08 07:00] VITALS: BP 124/37
[2022-01-08] MEDS ORDERED: IV NORMAL SALINE 1000ML BAG 1,000 ML IV PRN ×2 (07:30)
[2022-01-08] MEDS ORDERED: ALBUMIN HUMAN 25% 200 ML IV PRN (07:30)
[2022-01-08] MEDS ORDERED: DIALYSIS PATIENT. MC PRN ×2 (07:30)
[2022-01-08] MEDS: INSULIN LISPRO 300 UNITS/3 ML VIAL. SQ SCH ×3 (08:00→17:13)
[2022-01-08] MEDS: LACTOBACILLUS RHAMNOSUS GG 1 CAPSULE. PO SCH ×2 (09:00→21:30)
[2022-01-08] MEDS: DOXYCYCLINE HYCLATE 100 MG TABLET PO SCH ×2 (09:00→21:30)
[2022-01-08] MEDS: SENNOSIDES/DOCUSATE 8.6/50MG TABLET. PO SCH ×2 (09:00→21:30)
[2022-01-08] MEDS: FOLIC/VIT B COMP W-C (RENAL) TABLET. PO SCH (09:00)
--- NOTE | 2022-01-08 11:12 | PDOC ---
DATE OF SERVICE DATE: 01/08/22 TIME: 11:12 SUBJECTIVE ROS Seen during dialysis. No complaints OBJECTIVE Vital Signs Vital Signs Date Time Temp Pulse Resp B/P (MAP) Pulse Ox O2 Delivery O2 Flow Rate FiO2 01/08/22 08:00 Nasal Cannula 2.0 01/08/22 07:00 98.2 61 20 124/37 (66) 99 98.2 I & 0 Intake and Output 01/08/22 07:00 Intake Total 650 ml Balance 650 ml Intake Oral 650 ml PHYSICAL EXAM Physical Exam GEN: obese HEENT: Normal cephalic, atraumatic, NECK: Supple, LUNGS: Decreased at bases , Non labored HEART: RRR, S1, S2 present. ABDOMEN: Soft, nontender. Positive bowel sounds, EXTREMITIES: Left BKA Right-sided pitting edema NEUROLOGIC: A&O x 3, moves all extremities, no obvious focal deficits PSYCHIATRIC: Normal affect,. Stable SKIN: No ulcerations or rashes, No SP or CVA tenderness Vital Signs Vital Signs Date Time Temp Pulse Resp B/P (MAP) Pulse Ox O2 Delivery O2 Flow Rate FiO2 01/07/22 07:00 97.3 66 18 130/57 (81) 100 Nasal Cannula 2.0 97.3 DIAGNOSIS/ASSESSMENT Assessment & Plan ESRD - On HD MWF UF yesterday 3 Lts . Dialysis today per her regular schedule. Seen during treatment, tolerating well. Continue as ordered. Obie HARVEY Hypotension POA- resolved. BP normal Hypothermia resolved Anemia stable Morbid obesity Questionable opacity on imaging- On Abx COMMENT/RELEVANT DATA Meds Current Medications Medications (Trade) Dose Ordered Sig/Marcia Start Time Stop Time Status Last Admin Dose Admin Acetaminophen (Tylenol) 650 mg PRN Q6HRS PRN 01/06/22 18:15 Albumin Human 200 ml @ 200 mls/hr 1X PRN PRN 01/08/22 07:30 01/08/22 13:29 Calcium Carbonate/ Glycine (Tums) 500 mg PRN Q3HRS PRN 01/06/22 18:15 Ceftriaxone Sodium (Rocephin) 1 gm Q24H 01/06/22 19:00 01/07/22 18:39 1 GM Dextrose (Dextrose 50%-Water Syringe) 12.5 gm PRN Q15MIN PRN 01/06/22 18:15 Dextrose (Iv Dextrose 5%) 250 ml PRN Q15MIN PRN 01/06/22 18:15 Doxycycline Hyclate (Vibra-Tab) 100 mg BID 01/06/22 19:00 01/07/22 21:12 100 MG Heparin Sodium (Porcine) (Heparin Sodium) 5,000 unit Q8HRS 01/06/22 19:00 01/08/22 06:09 5,000 UNIT Hydromorphone HCl (Dilaudid) 0.4 mg PRN Q1HR PRN 01/06/22 18:15 Info (CONTRAST GIVEN -- Rx MONITORING) 1 each PRN DAILY PRN 01/06/22 12:00 01/08/22 11:59 Info (Non-Icu Electrolyte Protocol) 1 ea PRN DAILY PRN 01/06/22 18:15 Info (PHARMACY MONITORING -- do not chart) 1 each PRN DAILY PRN 01/08/22 07:30 Insulin Human Lispro (HumaLOG) 0-7 UNITS TIDWMEALS 01/07/22 08:00 01/07/22 10:20 3 UNITS Iohexol (Omnipaque 300 Mg/ml) 60 ml 1X ONCE 01/06/22 12:00 01/06/22 12:01 DC 01/06/22 12:14 60 ML Lactobacillus Rhamnosus (Culturelle) 1 cap BID 01/07/22 21:00 01/07/22 21:12 1 CAP Lidocaine HCl (Xylocaine-Mpf 1% 2ml Vial) 2 ml 1X PRN PRN 01/07/22 13:15 01/07/22 19:00 DC Ondansetron HCl (Zofran) 4 mg PRN Q6HRS PRN 01/06/22 18:15 Senna/Docusate Sodium (Senna Plus) 1 tab BID 01/06/22 21:00 01/07/22 21:12 1 TAB Sodium Chloride 1,000 ml @ 400 mls/hr Q2H30M PRN 01/08/22 07:30 01/08/22 19:29 Vitamin B Complex/ Vitamin C (Nataly-Harris) 1 tab DAILY 01/07/22 09:00 01/07/22 10:14 1 TAB Lab Laboratory Tests Test 01/07/22 21:01 01/08/22 03:55 01/08/22 07:56 Glucose (Fingerstick) 255 mg/dL (70-99) 151 mg/dL (70-99) Sodium Level 131 mmol/L (136-145) Potassium Level 4.4 mmol/L (3.5-5.1) Chloride Level 94 mmol/L (98-107) Carbon Dioxide Level 27 mmol/L (21-32) Anion Gap 10 (6-14) Blood Urea Nitrogen 70 mg/dL (7-20) Creatinine 8.1 mg/dL (0.6-1.0) Estimated GFR (Cockcroft-Gault) 5.0 Glucose Level 166 mg/dL (70-99) Calcium Level 9.1 mg/dL (8.5-10.1) Results All relevant outside records, renal labs, imaging studies, telemetry/EKG's were reviewed. Justicifation of Admission Dx: Justifications for Admission: Justification of Admission Dx: N/A YOJANA RIDER MD Jan 08, 2022 11:12
--- NOTE | 2022-01-08 12:34 | PDOC ---
[employer] PROGRESS NOTE Date of Service DOS: DATE: 01/08/22 TIME: 12:33 Chief Complaint Chief Complaint Hypotension ESRD on dialysis Metabolic cephalopathy Hypothermia macrocytic anemia morbid obesity history NATHAN History of Present Illness History of Present Illness 01/08/2022 Patient seen and examined She seems slightly better but not baseline Discussed with RN Chart reviewed 01/07/2022 Patient seen and examined She is pleasantly confused really will not wake up much Her is present (he explains she developed mental status change after having 2 days of dialysis in a row because she was volume overloaded) Discussed with RN Discussed with case management Chart reviewed Vitals/I&O Vitals/I&O: Vital Signs Date Time Temp Pulse Resp B/P (MAP) Pulse Ox O2 Delivery O2 Flow Rate FiO2 01/08/22 08:00 Nasal Cannula 2.0 01/08/22 07:00 98.2 61 20 124/37 (66) 99 98.2 I & O 01/07/22 01/07/22 01/08/22 15:00 23:00 07:00 Intake Total 240 ml 170 ml 240 ml Balance 240 ml 170 ml 240 ml Physical Exam General: No acute distress, Other (Very sleepy and weak obese) Heart: Regular rate Lungs: Clear Abdomen: Normal bowel sounds Extremities: No clubbing Skin: No rashes Labs Labs: Laboratory Tests Test 01/07/22 21:01 01/08/22 03:55 01/08/22 07:56 01/08/22 10:00 Glucose (Fingerstick) 255 mg/dL (70-99) 151 mg/dL (70-99) Sodium Level 131 mmol/L (136-145) Potassium Level 4.4 mmol/L (3.5-5.1) Chloride Level 94 mmol/L (98-107) Carbon Dioxide Level 27 mmol/L (21-32) Anion Gap 10 (6-14) Blood Urea Nitrogen 70 mg/dL (7-20) Creatinine 8.1 mg/dL (0.6-1.0) Estimated GFR (Cockcroft-Gault) 5.0 Glucose Level 166 mg/dL (70-99) Calcium Level 9.1 mg/dL (8.5-10.1) Hepatitis B Surface Antibody Nonreactive Assessment and Plan Assessmemt and Plan Problems Medical Problems: (1) Dehydration Status: Acute (2) Dialysis patient Status: Acute (3) Hypothermia Status: Acute Hypotension ESRD on dialysis Metabolic cephalopathy Hypothermia macrocytic anemia morbid obesity history NATHAN Plan Dialysis per nephrology Cardiac monitoring Empiric IV Rocephin Encourage p.o. intake Trend labs Home meds DVT prophylaxis Full code Suspect she might need retirement Comment Review of Relevant I have reviewed the following items joseph (where applicable) has been applied. Medications: Current Medications Medications (Trade) Dose Ordered Sig/Marcia Route PRN Reason Start Time Stop Time Status Last Admin Dose Admin Lactobacillus Rhamnosus (Culturelle) 1 cap BID PO 01/07/22 21:00 01/07/22 21:12 Justifications for Admission Other Justification JAIME WEBBER III DO Jan 08, 2022 12:34
[2022-01-08 15:00] VITALS: BP 110/35
[2022-01-08] MEDS: cefTRIAXone IV Push 1 GM VIAL. IVP SCH (18:27)
[2022-01-08 19:00] VITALS: BP 120/46
[2022-01-08 23:00] VITALS: BP 113/56
[2022-01-09 03:13] VITALS: BP 136/55
[2022-01-09] MEDS: HEPARIN for SUB-Q USE 5,000 UNIT/ML VIAL. SQ SCH ×3 (05:44→22:13)
[2022-01-09 07:00] VITALS: BP 139/59
[2022-01-09] MEDS: INSULIN LISPRO 300 UNITS/3 ML VIAL. SQ SCH ×3 (08:00→17:42)
--- NOTE | 2022-01-09 09:15 | PDOC ---
DATE OF SERVICE DATE: 01/09/22 TIME: 09:14 SUBJECTIVE ROS No complaints , denies SOB. On RA No N/V OBJECTIVE Vital Signs Vital Signs Date Time Temp Pulse Resp B/P (MAP) Pulse Ox O2 Delivery O2 Flow Rate FiO2 01/09/22 07:00 98.1 70 18 139/59 (85) 98 Room Air 98.1 01/08/22 23:00 2.0 I & 0 Intake and Output 01/09/22 07:00 Intake Total 50 ml Balance 50 ml Intake Oral 50 ml PHYSICAL EXAM Physical Exam GEN: obese HEENT: Normal cephalic, atraumatic, NECK: Supple, LUNGS: Decreased at bases , Non labored HEART: RRR, S1, S2 present. ABDOMEN: Soft, nontender. Positive bowel sounds, EXTREMITIES: Left BKA Right-sided pitting edema NEUROLOGIC: A&O x 3, moves all extremities, no obvious focal deficits PSYCHIATRIC: Normal affect,. Stable SKIN: No ulcerations or rashes, No SP or CVA tenderness Vital Signs DIAGNOSIS/ASSESSMENT Assessment & Plan ESRD - On HD MWF No indication for dialysis today. Resume Dialysis at OP unit tomorrow if dced today. Defer to primary . Hypotension POA- resolved. BP normal Hypothermia resolved Anemia stable Morbid obesity Questionable opacity on imaging- On Abx COMMENT/RELEVANT DATA Meds Current Medications Medications (Trade) Dose Ordered Sig/Marcia Start Time Stop Time Status Last Admin Dose Admin Acetaminophen (Tylenol) 650 mg PRN Q6HRS PRN 01/06/22 18:15 Albumin Human 200 ml @ 200 mls/hr 1X PRN PRN 01/08/22 07:30 01/08/22 13:29 DC Calcium Carbonate/ Glycine (Tums) 500 mg PRN Q3HRS PRN 01/06/22 18:15 Ceftriaxone Sodium (Rocephin) 1 gm Q24H 01/06/22 19:00 01/08/22 18:27 1 GM Dextrose (Dextrose 50%-Water Syringe) 12.5 gm PRN Q15MIN PRN 01/06/22 18:15 Dextrose (Iv Dextrose 5%) 250 ml PRN Q15MIN PRN 01/06/22 18:15 Doxycycline Hyclate (Vibra-Tab) 100 mg BID 01/06/22 19:00 01/08/22 21:30 100 MG Heparin Sodium (Porcine) (Heparin Sodium) 5,000 unit Q8HRS 01/06/22 19:00 01/09/22 05:44 5,000 UNIT Hydromorphone HCl (Dilaudid) 0.4 mg PRN Q1HR PRN 01/06/22 18:15 Info (CONTRAST GIVEN -- Rx MONITORING) 1 each PRN DAILY PRN 01/06/22 12:00 01/08/22 11:59 DC Info (Non-Icu Electrolyte Protocol) 1 ea PRN DAILY PRN 01/06/22 18:15 Info (PHARMACY MONITORING -- do not chart) 1 each PRN DAILY PRN 01/08/22 07:30 Insulin Human Lispro (HumaLOG) 0-7 UNITS TIDWMEALS 01/07/22 08:00 01/08/22 17:13 3 UNITS Iohexol (Omnipaque 300 Mg/ml) 60 ml 1X ONCE 01/06/22 12:00 01/06/22 12:01 DC 01/06/22 12:14 60 ML Lactobacillus Rhamnosus (Culturelle) 1 cap BID 01/07/22 21:00 01/08/22 21:30 1 CAP Lidocaine HCl (Xylocaine-Mpf 1% 2ml Vial) 2 ml 1X PRN PRN 01/07/22 13:15 01/07/22 19:00 DC Ondansetron HCl (Zofran) 4 mg PRN Q6HRS PRN 01/06/22 18:15 Senna/Docusate Sodium (Senna Plus) 1 tab BID 01/06/22 21:00 01/08/22 21:30 1 TAB Sodium Chloride 1,000 ml @ 400 mls/hr Q2H30M PRN 01/08/22 07:30 01/08/22 19:29 DC Vitamin B Complex/ Vitamin C (Nataly-Harris) 1 tab DAILY 01/07/22 09:00 01/07/22 10:14 1 TAB Lab Laboratory Tests Test 01/08/22 10:00 01/08/22 16:55 01/08/22 21:02 01/09/22 07:45 Hepatitis B Surface Antibody Nonreactive Glucose (Fingerstick) 170 mg/dL (70-99) 170 mg/dL (70-99) 128 mg/dL (70-99) Results All relevant outside records, renal labs, imaging studies, telemetry/EKG's were reviewed. Justicifation of Admission Dx: Justifications for Admission: Justification of Admission Dx: N/A YOJANA RIDER MD Jan 09, 2022 09:15
[2022-01-09] MEDS ORDERED: AMOX1TAB58 PO (11:08)
[2022-01-09] MEDS ORDERED: DOXY100T PO (11:08)
[2022-01-09] MEDS ORDERED: FOLI0.8T21 PO (11:10)
[2022-01-09] MEDS: LACTOBACILLUS RHAMNOSUS GG 1 CAPSULE. PO SCH ×2 (11:10→22:12)
[2022-01-09] MEDS: DOXYCYCLINE HYCLATE 100 MG TABLET PO SCH ×2 (11:10→22:12)
[2022-01-09 11:11] VITALS: BP 132/60
[2022-01-09] MEDS: FOLIC/VIT B COMP W-C (RENAL) TABLET. PO SCH (11:11)
[2022-01-09] MEDS: SENNOSIDES/DOCUSATE 8.6/50MG TABLET. PO SCH ×2 (11:11→22:12)
--- NOTE | 2022-01-09 11:11 | SNU/HH DC ---
DISCHARGE ORDERS DISCHARGE INFORMATION: DISCHARGE DATE: Jan 09, 2022 FINAL DIAGNOSIS Problems Medical Problems: (1) Dehydration Status: Acute (2) Dialysis patient Status: Acute (3) Hypothermia Status: Acute CONDITION ON DISCHARGE: Stable CODE STATUS: Code Status: Full POST DISCHARGE ORDERS: ACTIVITY ORDERS: Activity as tolerated WEIGHT BEARING STATUS: As tolerated DIET AFTER DISCHARGE: Renal FOLLOW-UP: PHYSICIAN FOLLOW-UP: PCP within 2 weeks of discharge ADDITIONAL FOLLOW-UP: Nephrology for normal scheduled hemodialysis LAB ORDERS FOR FOLLOW-UP: CBC, CMP, chest x-ray in 1 week DISCHARGE MEDICATIONS: Home Meds Active Scripts Folic Acid/Vitamin B Comp W-C (JOANA-JEAN CLAUDE TABLET) 0.8 Mg Tablet, 1 TAB PO DAILY for supplement for 30 Days, #30 TAB 11 Refills Prov:CHUY RIVERA MD 01/09/22 Amoxicillin/Potassium Clav (AUGMENTIN 500-125 TABLET) 1 Each Tablet, 1 TAB PO BID for pneumonia for 5 Days, #10 TAB 0 Refills Prov:CHUY RIVERA MD 01/09/22 Doxycycline Hyclate (DOXYCYCLINE HYCLATE) 100 Mg Tablet, 100 MG PO BID for pneum onia for 5 Days, #10 TAB Prov:CHUY RIVERA MD 01/09/22 CHUY RIVERA MD Jan 09, 2022 11:11
[2022-01-09 15:30] VITALS: BP 132/60
[2022-01-09 19:00] VITALS: BP 142/60
[2022-01-09] MEDS: cefTRIAXone IV Push 1 GM VIAL. IVP SCH (22:14)
[2022-01-09 23:00] VITALS: BP 142/60
[2022-01-10 03:00] VITALS: BP 132/48
[2022-01-10 06:06] LABS: CALCIUM 9.6 mg/dL (8.5-10.1); CREATININE 6.7 mg/dL (0.6-1.0); GFR 6.2; POTASSIUM 4.9 mmol/L (3.5-5.1)
[2022-01-10] MEDS: HEPARIN for SUB-Q USE 5,000 UNIT/ML VIAL. SQ SCH ×2 (06:32→14:00)
[2022-01-10 07:00] VITALS: BP 132/63
[2022-01-10] MEDS ORDERED: DIALYSIS PATIENT. MC PRN ×2 (07:45)
[2022-01-10] MEDS: SENNOSIDES/DOCUSATE 8.6/50MG TABLET. PO SCH (08:41)
[2022-01-10] MEDS: LACTOBACILLUS RHAMNOSUS GG 1 CAPSULE. PO SCH (08:41)
[2022-01-10] MEDS: FOLIC/VIT B COMP W-C (RENAL) TABLET. PO SCH (08:41)
[2022-01-10] MEDS: DOXYCYCLINE HYCLATE 100 MG TABLET PO SCH (08:41)
[2022-01-10] MEDS: INSULIN LISPRO 300 UNITS/3 ML VIAL. SQ SCH ×2 (08:49→12:00)
--- NOTE | 2022-01-10 09:17 | PDOC ---
DATE OF SERVICE DATE: 01/10/22 TIME: 09:17 SUBJECTIVE ROS No complaints , denies SOB. On RA No N/V OBJECTIVE Vital Signs Vital Signs Date Time Temp Pulse Resp B/P (MAP) Pulse Ox O2 Delivery O2 Flow Rate FiO2 01/10/22 07:00 98.1 78 18 132/63 (86) 94 Room Air 98.1 01/09/22 23:00 2.0 I & 0 Intake and Output 01/10/22 07:00 Intake Total 75 ml Balance 75 ml Intake Oral 75 ml PHYSICAL EXAM Physical Exam GEN: obese HEENT: Normal cephalic, atraumatic, NECK: Supple, LUNGS: Decreased at bases , Non labored HEART: RRR, S1, S2 present. ABDOMEN: Soft, nontender. Positive bowel sounds, EXTREMITIES: Left BKA Right-sided pitting edema NEUROLOGIC: A&O x 3, moves all extremities, no obvious focal deficits PSYCHIATRIC: Normal affect,. Stable SKIN: No ulcerations or rashes, No SP or CVA tenderness DIAGNOSIS/ASSESSMENT Assessment & Plan ESRD - On HD MWF Seen during dialysis. Tolerating well. Continue as ordered. Obie HARVEY Hypotension POA- resolved. BP normal Hypothermia resolved Anemia stable Morbid obesity Questionable opacity on imaging- On Abx COMMENT/RELEVANT DATA Meds Current Medications Medications (Trade) Dose Ordered Sig/Marcia Start Time Stop Time Status Last Admin Dose Admin Acetaminophen (Tylenol) 650 mg PRN Q6HRS PRN 01/06/22 18:15 01/09/22 17:36 650 MG Albumin Human 200 ml @ 200 mls/hr 1X PRN PRN 01/08/22 07:30 01/08/22 13:29 DC Calcium Carbonate/ Glycine (Tums) 500 mg PRN Q3HRS PRN 01/06/22 18:15 Ceftriaxone Sodium (Rocephin) 1 gm Q24H 01/06/22 19:00 01/09/22 22:14 1 GM Dextrose (Dextrose 50%-Water Syringe) 12.5 gm PRN Q15MIN PRN 01/06/22 18:15 Dextrose (Iv Dextrose 5%) 250 ml PRN Q15MIN PRN 01/06/22 18:15 Doxycycline Hyclate (Vibra-Tab) 100 mg BID 01/06/22 19:00 01/10/22 08:41 100 MG Heparin Sodium (Porcine) (Heparin Sodium) 5,000 unit Q8HRS 01/06/22 19:00 01/10/22 06:32 5,000 UNIT Hydromorphone HCl (Dilaudid) 0.4 mg PRN Q1HR PRN 01/06/22 18:15 Info (CONTRAST GIVEN -- Rx MONITORING) 1 each PRN DAILY PRN 01/06/22 12:00 01/08/22 11:59 DC Info (Non-Icu Electrolyte Protocol) 1 ea PRN DAILY PRN 01/06/22 18:15 Info (PHARMACY MONITORING -- do not chart) 1 each PRN DAILY PRN 01/10/22 07:45 Insulin Human Lispro (HumaLOG) 0-7 UNITS TIDWMEALS 01/07/22 08:00 01/10/22 08:49 3 UNITS Iohexol (Omnipaque 300 Mg/ml) 60 ml 1X ONCE 01/06/22 12:00 01/06/22 12:01 DC 01/06/22 12:14 60 ML Lactobacillus Rhamnosus (Culturelle) 1 cap BID 01/07/22 21:00 01/10/22 08:41 1 CAP Lidocaine HCl (Xylocaine-Mpf 1% 2ml Vial) 2 ml 1X PRN PRN 01/07/22 13:15 01/07/22 19:00 DC Ondansetron HCl (Zofran) 4 mg PRN Q6HRS PRN 01/06/22 18:15 Senna/Docusate Sodium (Senna Plus) 1 tab BID 01/06/22 21:00 01/10/22 08:41 1 TAB Sodium Chloride 1,000 ml @ 400 mls/hr Q2H30M PRN 01/08/22 07:30 01/08/22 19:29 DC Vitamin B Complex/ Vitamin C (Nataly-Harris) 1 tab DAILY 01/07/22 09:00 01/10/22 08:41 1 TAB Lab Laboratory Tests Test 01/09/22 12:01 01/09/22 17:33 01/10/22 04:30 01/10/22 08:09 Glucose (Fingerstick) 171 mg/dL (70-99) 159 mg/dL (70-99) 117 mg/dL (70-99) Sodium Level 133 mmol/L (136-145) Potassium Level 4.9 mmol/L (3.5-5.1) Chloride Level 95 mmol/L (98-107) Carbon Dioxide Level 27 mmol/L (21-32) Anion Gap 11 (6-14) Blood Urea Nitrogen 73 mg/dL (7-20) Creatinine 6.7 mg/dL (0.6-1.0) Estimated GFR (Cockcroft-Gault) 6.2 Glucose Level 136 mg/dL (70-99) Calcium Level 9.6 mg/dL (8.5-10.1) Results All relevant outside records, renal labs, imaging studies, telemetry/EKG's were reviewed. Justicifation of Admission Dx: Justifications for Admission: Justification of Admission Dx: N/A YOJANA RIDER MD Jan 10, 2022 09:17
--- NOTE | 2022-01-10 11:23 | PDOC ---
[employer] PROGRESS NOTE Date of Service DOS: DATE: 01/10/22 TIME: 11:23 Chief Complaint Chief Complaint Hypotension ESRD on dialysis Metabolic cephalopathy Hypothermia macrocytic anemia morbid obesity history NATHAN History of Present Illness History of Present Illness 01/10/2022 Patient seen and examined exam discussed with RN Chart reviewed Discussed with case management We plan to discharge to [facility] today 01/08/2022 Patient seen and examined She seems slightly better but not baseline Discussed with RN Chart reviewed 01/07/2022 Patient seen and examined She is pleasantly confused really will not wake up much Her is present (he explains she developed mental status change after having 2 days of dialysis in a row because she was volume overloaded) Discussed with RN Discussed with case management Chart reviewed Vitals/I&O Vitals/I&O: Vital Signs Date Time Temp Pulse Resp B/P (MAP) Pulse Ox O2 Delivery O2 Flow Rate FiO2 01/10/22 07:00 98.1 78 18 132/63 (86) 94 Room Air 98.1 01/09/22 23:00 2.0 I & O 01/09/22 01/09/22 01/10/22 15:00 23:00 07:00 Intake Total 50 ml 25 ml Balance 50 ml 25 ml Physical Exam General: No acute distress, Other (Very sleepy and weak obese) Heart: Regular rate Lungs: Clear Abdomen: Normal bowel sounds Extremities: No clubbing Skin: No rashes Labs Labs: Laboratory Tests Test 01/09/22 12:01 01/09/22 17:33 01/10/22 04:30 01/10/22 08:09 Glucose (Fingerstick) 171 mg/dL (70-99) 159 mg/dL (70-99) 117 mg/dL (70-99) Sodium Level 133 mmol/L (136-145) Potassium Level 4.9 mmol/L (3.5-5.1) Chloride Level 95 mmol/L (98-107) Carbon Dioxide Level 27 mmol/L (21-32) Anion Gap 11 (6-14) Blood Urea Nitrogen 73 mg/dL (7-20) Creatinine 6.7 mg/dL (0.6-1.0) Estimated GFR (Cockcroft-Gault) 6.2 Glucose Level 136 mg/dL (70-99) Calcium Level 9.6 mg/dL (8.5-10.1) Assessment and Plan Assessmemt and Plan Problems Medical Problems: (1) Dehydration Status: Acute (2) Dialysis patient Status: Acute (3) Hypothermia Status: Acute Hypotension ESRD on dialysis Metabolic cephalopathy Hypothermia macrocytic anemia morbid obesity history NATHAN Plan Probable discharge to [facility] later today For now continue the following; Dialysis per nephrology Cardiac monitoring Empiric IV Rocephin Encourage p.o. intake Trend labs Home meds DVT prophylaxis Full code Comment Review of Relevant I have reviewed the following items joseph (where applicable) has been applied. Justifications for Admission Other Justification JAIME WEBBER III DO Jan 10, 2022 11:23
[2022-01-10 15:00] VITALS: BP 139/62
--- NOTE | 2022-01-10 15:31 | NUR ---
Per [facility] policy, pt assessed and is not deemed an elopement risk at this time.
--- NOTE | 2022-01-10 16:29 | NUR ---
gave report to Sarah at [facility] related to patient discharge back to facility. ETA 1 hr for pickup
--- NOTE | 2022-01-11 20:18 | DS ---
DATE OF DISCHARGE: 01/10/2022 ADMISSION DIAGNOSES: Hypothermia; hypotension; mental status change; metabolic encephalopathy; end-stage renal disease, on dialysis; pneumonia. DISCHARGE DIAGNOSES: Resolving metabolic encephalopathy; resolving hypotension; resolving hypothermia; history of chronic end-stage renal disease, on dialysis; history of anemia; obesity and obstructive sleep apnea; resolving pneumonia. CONSULTS: Nephrology. PROCEDURES: Dialysis. HOSPITAL COURSE: The patient is a pleasant, middle-aged female who presented with mental status change. She was hypothermic and hypotensive. She was admitted. We consulted Nephrology. We initially had to put a Tammi Hugger on her for her hypothermia, resumed her home meds and over the next few days, she was able to be dialyzed and returned to her baseline. Yesterday, I saw her and examined her. She was doing well, will be discharged home. DISPOSITION: Home. ACTIVITY: As tolerated. DIET: Low sodium. MEDICATIONS: Please see the MRAD. Amoxicillin 500 b.i.d., doxycycline 100 p.o. b.i.d. and Nataly-Harris tablets. TOTAL TIME: 36 minutes. YU/SPARKLE/DANE DR: YU/joao TID: [id number]
== END 2022-01-10 17:30 | DRG 314 ==
LOC: ER 08:13 → 4 NORTH 15:23
PROVIDERS: ADMIT Student in an Organized Health Care Education/Training Program; ATTEND Student in an Organized Health Care Education/Training Program
PROC: 5A1D70Z Performance of Urinary Filtration, Intermittent, Less than 6 Hours Per Day (ICD-10-PCS; 2022-01-07)
PROC: 5A1D70Z Performance of Urinary Filtration, Intermittent, Less than 6 Hours Per Day (ICD-10-PCS; 2022-01-09)
PROC: 5A1D70Z Performance of Urinary Filtration, Intermittent, Less than 6 Hours Per Day (ICD-10-PCS; principal; 2022-01-10)
DX: I95.9 Hypotension, unspecified (principal); N18.6 End stage renal disease; G93.41 Metabolic encephalopathy; J18.9 Pneumonia, unspecified organism; J98.11 Atelectasis; E86.0 Dehydration; Z99.2 Dependence on renal dialysis; D53.9 Nutritional anemia, unspecified; E66.01 Morbid (severe) obesity due to excess calories; E83.52 Hypercalcemia; G47.33 Obstructive sleep apnea (adult) (pediatric); I51.7 Cardiomegaly; I73.9 Peripheral vascular disease, unspecified; Z82.49 Family history of ischemic heart disease and other diseases of the circulatory system; Z89.519 Acquired absence of unspecified leg below knee; Z95.1 Presence of aortocoronary bypass graft; Z20.822 Contact with and (suspected) exposure to COVID-19
CPT/HCPCS: 36415; 71045; 80048; 80053; 82140; 82607; 82962; 83036; 83605; 84443; 84484; 85025; 86706; 87426; 93005; J0696; J1644; J1815; Q9967; U0003; 97530-GO; 97530-GP; 99285-25; G0378